=== PATIENT | female | born 1945 | race African-American/Black ===

== ENCOUNTER 2018-10-02 08:32 | Inpatient (IN) | payer OTHER ==
[~2018-10-02] VITALS: Ht 165.1 cm; Wt 97.5 kg
[2018-10-02] MEDS ORDERED: AVAPRO75 MG (08:55)
--- NOTE | 2018-10-02 08:55 | NUR ---
PACINETE REFIERE DOLOR SRINIVAS INTERMITENMTE LADO DERECHO , PRESNETABNDO NAUSEAS Y 5 VOMITOS Y DIARREAS .
--- NOTE | 2018-10-02 09:29 | NUR ---
RHODES EVALUA PACIENTE Y ORDENA TRATAMIENTO MEDICO DEL CUAL ORIENTA PACIENTE Y FAMILIAR,AMBOS REFIEREN COMPRENDER. COLECTA MUESTRAS DE LABORATORIOS NOBLE ORDEN MEDICA SIGUIENDO MEDIDAS ASEPTICAS. ADMINISTRA MEDICAMENTOS BAJO MEDIDAS ASEPTICAS. NOTIFICA ESTUDIO CT ABD/PEL A PERSONAL DE TURNO. PACIENTE TOLERA PROCEDIMEINTOS.
== END 2018-10-11 11:04 | disposition home or self-care (01) | DRG 444 ==
LOC: ER 08:32 → EDBD 08:48 → SURH 16:21 → MEDJ 17:42 → SURH 17:53
PROVIDERS: ADMIT Internal Medicine
PROC: BW21ZZZ Computerized Tomography (CT Scan) of Abdomen and Pelvis (ICD-10-PCS; principal; 2018-10-02)
PROC: BW40ZZZ Ultrasonography of Abdomen (ICD-10-PCS; 2018-10-02)
PROC: BW40ZZZ Ultrasonography of Abdomen (ICD-10-PCS; 2018-10-02)
PROC: BF37ZZZ Magnetic Resonance Imaging (MRI) of Pancreas (ICD-10-PCS; 2018-10-03)
PROC: B246ZZZ Ultrasonography of Right and Left Heart (ICD-10-PCS; 2018-10-09)
DX: K80.00 Calculus of gallbladder with acute cholecystitis without obstruction (principal); I50.23 Acute on chronic systolic (congestive) heart failure; I13.0 Hypertensive heart and chronic kidney disease with heart failure and stage 1 through stage 4 chronic kidney disease, or unspecified chronic kidney disease; E87.6 Hypokalemia; D72.828 Other elevated white blood cell count; N18.3 Chronic kidney disease, stage 3 (moderate)

== ENCOUNTER 2020-10-02 15:44 | Emergency (ER) | payer OTHER ==
[~2020-10-02] VITALS: Ht 165.1 cm; Wt 104.3 kg
[~2020-10-02 15:44] MED LIST: AVAPRO75 MG
[2020-10-02] MEDS ORDERED: CANDESARTAN CILE8 MG (16:18)
== END 2020-10-02 18:24 | disposition home or self-care (01) ==
LOC: ER 15:44
DX: S80.02XA Contusion of left knee, initial encounter (principal); S80.01XA Contusion of right knee, initial encounter; S80.11XA Contusion of right lower leg, initial encounter; W18.39XA Other fall on same level, initial encounter; Y93.89 Activity, other specified; Y92.098 Other place in other non-institutional residence as the place of occurrence of the external cause; Y99.8 Other external cause status

== ENCOUNTER 2023-07-02 07:14 | Outpatient (CLI) | payer OTHER ==
[~2023-07-02 07:14] MED LIST changes: +CANDESARTAN CILE8 MG
== END 2023-07-02 07:20 | disposition home or self-care (01) ==
LOC: SONOGRAMA 07:14
DX: R10.10 Upper abdominal pain, unspecified (principal); K85.00 Idiopathic acute pancreatitis without necrosis or infection

== ENCOUNTER → 2023-11-30 07:27 | Outpatient (CLI) | payer OTHER | END | disposition home or self-care (01) | LOC: NUCLEAR 07:00 | PROVIDERS: ATTEND Internal Medicine | DX: R07.9 Chest pain, unspecified (principal) | CPT/HCPCS: 78452; 93017; A9500; J0153 ==